=== PATIENT | male | born 1995 | race Caucasian/White ===

== ENCOUNTER 2019-08-16 13:45 | Emergency (ER) | payer SELFPAY ==
[~2019-08-16] VITALS: Ht 170.2 cm; Wt 95.0 kg
[2019-08-16] MEDS ORDERED: SODIUM CHLORIDE 0.9% 1,000 ML IV ONE (14:47)
[2019-08-16] MEDS ORDERED: LORAZEPAM 2MG/ML CPJ IV ONE ×2 (15:00→16:15)
[2019-08-16 15:34] LABS: BASOPHILS % 0.3 % (0.0-2.0); EOSINOPHILS % 0.3 % (0.0-5.0); HEMATOCRIT. 48.2 % (42.0-52.0); HEMOGLOBIN. 16.6 g/dL (14.0-18.0); LYMPHOCYTES % 9.8 % (20.0-50.0); MEAN CORPUSCULAR HEMOGLOBIN 33.1 pg (28.0-32.0); MEAN PLATELET VOLUME 9.6 fl (7.4-10.4); MONOCYTES % 6.3 % (2.0-8.0); NEUTROPHILS % 83.3 % (40.0-76.0); PLATELET 218 x1000/uL (130-400); RED BLOOD CELL COUNT 5.02 mill/uL (4.7-6.1); RED CELL DISTRIBUTION WIDTH 13.1 % (11.6-14.6)
[2019-08-16 15:35] LABS: CHLORIDE 106 mEq/L (98-107)
[2019-08-16] MEDS ORDERED: POTASSIUM CHLORIDE 20MEQ TABLET SR PO ONE (15:45)
[2019-08-16] MEDS ORDERED: IBUPROFEN 400MG TABLET PO ONE (17:15)
[2019-08-16 17:41] VITALS: BP 150/96
[2019-08-16 17:48] LABS: *AMPHETAMINES SCREEN URINE PRESUMTIVE POSITIVE (NEGATIVE); *BARBITURATES SCREEN URINE NEGATIVE (NEGATIVE); *BENZODIAZEPINES SCREEN URINE NEGATIVE (NEGATIVE)
[2019-08-16 17:49] LABS: *COCAINE SCREEN URINE PRESUMTIVE POSITIVE (NEGATIVE); METHADONE URINE SCREEN NEGATIVE (NEGATIVE); OPIATES URINE SCREEN NEGATIVE (NEGATIVE)
[2019-08-16 17:51] LABS: CANNABINOID URINE SCREEN NEGATIVE (NEGATIVE); PHENCYCLIDINE URINE SCREEN NEGATIVE (NEGATIVE)
== END 2019-08-16 17:58 | disposition home or self-care (01) ==
LOC: ER 15:47
DX: F14.180 Cocaine abuse with cocaine-induced anxiety disorder (principal); T40.5X1A Poisoning by cocaine, accidental (unintentional), initial encounter; R07.89 Other chest pain; R00.2 Palpitations; R06.02 Shortness of breath; R42 Dizziness and giddiness; E87.6 Hypokalemia; F12.90 Cannabis use, unspecified, uncomplicated; Y92.89 Other specified places as the place of occurrence of the external cause; Z71.51 Drug abuse counseling and surveillance of drug abuser
CPT/HCPCS: 36415; 71045; 80053; 80305; 85025; 93005; 96361; 96374; 96376; 99284; J2060; J7030

== ENCOUNTER 2021-03-19 05:24 | Emergency (ER) | payer SELFPAY ==
[~2021-03-19] VITALS: Ht 170.2 cm; Wt 96.0 kg
[2021-03-19] MEDS ORDERED: ONDANSETRON HCL 4MG/2ML INJ IV STA (06:25)
[2021-03-19] MEDS ORDERED: SODIUM CHLORIDE 0.9% 1,000 ML IV ONE (06:30)
[2021-03-19 06:44] LABS: CHLORIDE 105 mEq/L (98-107)
[2021-03-19 06:49] LABS: BASOPHILS % 0.5 % (0.0-2.0); EOSINOPHILS % 1.1 % (0.0-5.0); ETHANOL BLOOD < 10 mg/dL; HEMATOCRIT. 44.3 % (42.0-52.0); HEMOGLOBIN. 15.3 g/dL (14.0-18.0); LYMPHOCYTES % 17.2 % (20.0-50.0); MEAN CORPUSCULAR HEMOGLOBIN 31.8 pg (28.0-32.0); MEAN CORPUSCULAR VOLUME 92.1 fL (80.0-94.0); MONOCYTES % 7.1 % (2.0-8.0); NEUTROPHILS % 74.1 % (40.0-76.0); PLATELET 251 x1000/uL (130-400); RED BLOOD CELL COUNT 4.81 mill/uL (4.7-6.1); RED CELL DISTRIBUTION WIDTH 12.8 % (11.6-14.6)
[2021-03-19 08:57] VITALS: BP 118/56
== END 2021-03-19 08:58 | disposition home or self-care (01) ==
LOC: ER 05:34
DX: F10.229 Alcohol dependence with intoxication, unspecified (principal); R11.2 Nausea with vomiting, unspecified; F12.10 Cannabis abuse, uncomplicated; Y90.0 Blood alcohol level of less than 20 mg/100 ml
CPT/HCPCS: 36415; 80053; 80320; 85025; 93005; 96361; 96374; 99284; J2405; J7030; G0480

== ENCOUNTER 2021-04-29 21:29 | Emergency (ER) | payer SELFPAY ==
[~2021-04-29] VITALS: Ht 170.2 cm; Wt 97.0 kg
[2021-04-29 21:32] VITALS: BP 161/102
== END 2021-04-29 22:47 | disposition left against medical advice (07) ==
LOC: ER 22:46
DX: R42 Dizziness and giddiness (principal); Z53.21 Procedure and treatment not carried out due to patient leaving prior to being seen by health care provider

== ENCOUNTER 2023-09-16 14:27 | Emergency (ER) | payer SELFPAY ==
[~2023-09-16] VITALS: Ht 170.2 cm; Wt 95.0 kg
[2023-09-16 14:50] VITALS: BP 136/94; PULSE 113; RESP 16; TEMP 98.5; O2SAT 98
== END 2023-09-16 17:29 | disposition left against medical advice (07) ==
LOC: ER 14:27
DX: S01.81XA Laceration without foreign body of other part of head, initial encounter (principal); Z53.21 Procedure and treatment not carried out due to patient leaving prior to being seen by health care provider; X58.XXXA Exposure to other specified factors, initial encounter; Y93.89 Activity, other specified; Y92.89 Other specified places as the place of occurrence of the external cause; Y99.8 Other external cause status
CPT/HCPCS: 99281

== ENCOUNTER 2023-09-17 00:22 | Emergency (ER) | payer MEDICAID ==
[~2023-09-17] VITALS: Ht 170.2 cm; Wt 96.9 kg
[2023-09-17 00:35] VITALS: BP 149/85; PULSE 110; RESP 15; O2SAT 97
[2023-09-17] MEDS ORDERED: ACETAMINOPHEN 325MG TABLET PO ONE (01:15)
[2023-09-17] MEDS ORDERED: LIDOCAINE HCL/PF 1% 10 MG/ML 5ML VIAL INFIL ONE (01:15)
[2023-09-17] MEDS ORDERED: BACITRACIN ZINC OINT UDPKT TOP ONE ×2 (01:15→01:45)
[2023-09-17] MEDS ORDERED: TETANUS, DIPHTHERIA, PERTUSSIS VAC/PF 0.5ML (>10YR OLD) IM ONE ×2 (01:15→01:47)
[2023-09-17] MEDS ORDERED: ACETAMINOPHEN 325MG TABLET ONE (01:44)
[2023-09-17] MEDS ORDERED: LIDOCAINE HCL/PF 1% 10 MG/ML 5ML VIAL ONE (01:45)
[2023-09-17 01:54] VITALS: TEMP 98.6
== END 2023-09-17 04:52 | disposition home or self-care (01) ==
LOC: ER 00:22
DX: S01.81XA Laceration without foreign body of other part of head, initial encounter (principal); Y04.0XXA Assault by unarmed brawl or fight, initial encounter; Y93.89 Activity, other specified; Y92.89 Other specified places as the place of occurrence of the external cause; Y99.8 Other external cause status
CPT/HCPCS: 70450; 70486; 90715; 12002; 90471; 99285; J3490; Z7610 ×2

== ENCOUNTER 2025-06-15 00:31 | Emergency (ER) | payer SELFPAY ==
[~2025-06-15] VITALS: Ht 170.2 cm; Wt 91.2 kg
[2025-06-15 00:40] VITALS: TEMP 37.2; O2SAT 99
[2025-06-15 01:46] LABS: CLARITY URINE CLEAR (CLEAR); COLOR URINE DARK YELLOW (YELLOW); GLUCOSE URINE NEGATIVE (NEGATIVE); KETONES URINE TRACE (NEGATIVE); LEUKOCYTE ESTERASE URINE NEGATIVE (NEGATIVE); NITRITE URINE NEGATIVE (NEGATIVE); OCCULT BLOOD URINE NEGATIVE (NEGATIVE); PH URINE 6.5 (4.5-8.0); PROTEIN URINE 2+ (NEGATIVE); SPECIFIC GRAVITY URINE 1.035 (1.005-1.030); UROBILINOGEN URINE 1.0 E.U./dL (0.2-1.0)
[2025-06-15] MEDS: CHLORDIAZEPOXIDE 25MG CAPSULE PO ONE (01:46)
[2025-06-15] MEDS: SODIUM CHLORIDE 0.9% 1,000 ML IV ONE (01:46)
[2025-06-15 01:58] LABS: CREATININE 0.9 mg/dL (0.6-1.3); ETHANOL BLOOD 105 mg/dL (<10); UREA NITROGEN BLOOD 17 mg/dL (9-23)
[2025-06-15 01:59] LABS: ASPARTATE AMINOTRANSFERASE 29 IU/L (<34)
[2025-06-15 02:00] LABS: BILIRUBIN DIRECT 0.2 mg/dL (<=3.0); BILIRUBIN TOTAL 0.8 mg/dL (0.1-1.0); PROTEIN TOTAL 7.4 g/dL (6.0-8.3)
[2025-06-15 02:13] LABS: RBC URINE NONE SEEN /hpf (0-2); SQUAMOUS EPITHELIAL CELL URINE NONE SEEN /lpf (RARE/1+); WBC URINE NONE SEEN /hpf (0-2)
[2025-06-15 02:14] LABS: BACTERIA URINE NONE SEEN; MUCUS URINE 2+ /lpf (NONE/TRACE)
[2025-06-15 02:38] LABS: BASOPHILS % 0.9 % (0.0-2.0); EOSINOPHILS % 0.5 % (0.0-5.0); HEMATOCRIT. 50.0 % (42.0-52.0); HEMOGLOBIN. 17.0 g/dL (14.0-18.0); LYMPHOCYTES % 30.3 % (20.0-50.0); MEAN PLATELET VOLUME 9.2 fl (7.4-10.4); MONOCYTES % 6.5 % (2.0-8.0); NEUTROPHILS % 61.8 % (40.0-76.0); PLATELET 320 x1000/uL (130-400); RED BLOOD CELL COUNT 5.47 mill/uL (4.7-6.1); RED CELL DISTRIBUTION WIDTH 12.8 % (11.6-14.6)
[2025-06-15 03:37] VITALS: BP 132/94; PULSE 97; RESP 16; O2SAT 99
== END 2025-06-15 03:42 | disposition home or self-care (01) ==
LOC: ER 00:31
DX: F10.939 Alcohol use, unspecified with withdrawal, unspecified (principal); R07.9 Chest pain, unspecified; F12.90 Cannabis use, unspecified, uncomplicated; Y90.5 Blood alcohol level of 100-119 mg/100 ml
CPT/HCPCS: 80076; 80048; 81003; 80320; 85025; 36415; 71045; 93005; 96360; 99285; J7030; G0480

== ENCOUNTER 2025-06-15 17:19 | Emergency (ER) | payer SELFPAY ==
[~2025-06-15] VITALS: Ht 170.2 cm; Wt 91.0 kg
[2025-06-15 17:38] VITALS: TEMP 36.9; O2SAT 97
[2025-06-15 18:26] LABS: BASOPHILS % 0.3 % (0.0-2.0); EOSINOPHILS % 0.2 % (0.0-5.0); HEMATOCRIT. 45.8 % (42.0-52.0); HEMOGLOBIN. 15.7 g/dL (14.0-18.0); LYMPHOCYTES % 18.1 % (20.0-50.0); MEAN PLATELET VOLUME 8.5 fl (7.4-10.4); MONOCYTES % 6.8 % (2.0-8.0); NEUTROPHILS % 74.6 % (40.0-76.0); PLATELET 244 x1000/uL (130-400); RED BLOOD CELL COUNT 4.96 mill/uL (4.7-6.1); RED CELL DISTRIBUTION WIDTH 12.9 % (11.6-14.6)
[2025-06-15 18:39] LABS: CREATININE 0.8 mg/dL (0.6-1.3); UREA NITROGEN BLOOD 13 mg/dL (9-23)
[2025-06-15 18:40] LABS: ETHANOL BLOOD < 10 mg/dL (<10)
[2025-06-15 18:41] LABS: ASPARTATE AMINOTRANSFERASE 26 IU/L (<34)
[2025-06-15 18:42] LABS: BILIRUBIN TOTAL 1.6 mg/dL (0.1-1.0); PROTEIN TOTAL 7.1 g/dL (6.0-8.3)
[2025-06-15] MEDS: ONDANSETRON 4MG ODT PO ONE (20:57)
[2025-06-15] MEDS: LORAZEPAM 1MG TABLET PO ONE (20:58)
[2025-06-15 21:01] VITALS: BP 166/107; PULSE 99; RESP 19; O2SAT 100
[2025-06-15 21:12] LABS: CLARITY URINE CLEAR (CLEAR); COLOR URINE YELLOW (YELLOW); GLUCOSE URINE NEGATIVE (NEGATIVE); KETONES URINE 3+ (NEGATIVE); LEUKOCYTE ESTERASE URINE NEGATIVE (NEGATIVE); NITRITE URINE NEGATIVE (NEGATIVE); OCCULT BLOOD URINE NEGATIVE (NEGATIVE); PH URINE 6.5 (4.5-8.0); PROTEIN URINE TRACE (NEGATIVE); SPECIFIC GRAVITY URINE 1.026 (1.005-1.030); UROBILINOGEN URINE 1.0 E.U./dL (0.2-1.0)
[2025-06-15 21:29] LABS: BACTERIA URINE 1+; MUCUS URINE TRACE /lpf (NONE/TRACE); RBC URINE 0-2 /hpf (0-2); SQUAMOUS EPITHELIAL CELL URINE FEW /lpf (RARE/1+); WBC URINE 0-2 /hpf (0-2)
[2025-06-15 21:43] LABS: *AMPHETAMINES SCREEN URINE NEGATIVE (NEGATIVE); *BARBITURATES SCREEN URINE NEGATIVE (NEGATIVE); *BENZODIAZEPINES SCREEN URINE PRESUMPTIVE POSITIVE (NEGATIVE); *COCAINE SCREEN URINE NEGATIVE (NEGATIVE); CANNABINOID URINE SCREEN NEGATIVE (NEGATIVE); ECSTASY MDMA SCREEN URINE NEGATIVE (NEGATIVE); METHADONE URINE SCREEN NEGATIVE (NEGATIVE); OPIATES URINE SCREEN NEGATIVE (NEGATIVE); PHENCYCLIDINE URINE SCREEN NEGATIVE (NEGATIVE)
== END 2025-06-15 21:11 | disposition home or self-care (01) ==
LOC: ER 17:19
DX: F10.939 Alcohol use, unspecified with withdrawal, unspecified (principal); F12.90 Cannabis use, unspecified, uncomplicated; F41.9 Anxiety disorder, unspecified; Z79.899 Other long term (current) drug therapy; Y90.0 Blood alcohol level of less than 20 mg/100 ml
CPT/HCPCS: 80053; 80305; 81003; 80320; 85025; 36415; 99283; Q0162; G0480